=== PATIENT | male | born 1995 | race Caucasian/White ===

== ENCOUNTER 2024-11-24 02:43 | Emergency (ER) | payer MEDICAID ==
[~2024-11-24] VITALS: Ht 172.7 cm; Wt 65.9 kg
[2024-11-24 02:56] VITALS: TEMP 97.9
[2024-11-24] MEDS ORDERED: VALA500T34 PO (03:02)
[2024-11-24] MEDS ORDERED: BICT1TAB PO (03:02)
[2024-11-24] MEDS ORDERED: DOXY100C5 PO (03:02)
[2024-11-24] MEDS ORDERED: ARIP10TA8 PO (03:02)
[2024-11-24] MEDS ORDERED: PROP10TA72 PO (03:02)
[2024-11-24 05:00] VITALS: BP 139/75; PULSE 95; RESP 16; O2SAT 99
[2024-11-24] MEDS ORDERED: SULF1TAB42 PO (05:34)
[2024-11-24] MEDS ORDERED: CEPH-558 PO (05:34)
[2024-11-24] MEDS ORDERED: NYST30OI6 TP (05:35)
== END 2024-11-24 05:55 | disposition home or self-care (01) ==
LOC: EMS 02:44
DX: B37.9 Candidiasis, unspecified (principal); B35.9 Dermatophytosis, unspecified; B95.62 Methicillin resistant Staphylococcus aureus infection as the cause of diseases classified elsewhere; F41.9 Anxiety disorder, unspecified; Z79.624 Long term (current) use of inhibitors of nucleotide synthesis; Z79.899 Other long term (current) drug therapy
CPT/HCPCS: 99283; Z7502

== ENCOUNTER 2024-12-28 01:59 | Emergency (ER) | payer MEDICAID ==
[~2024-12-28] VITALS: Ht 172.7 cm; Wt 65.9 kg
[~2024-12-28 01:59] MED LIST: ARIP10TA8 PO; BICT1TAB PO; CEPH-558 PO; DOXY100C5 PO; NYST30OI6 TP; PROP10TA72 PO; SULF1TAB42 PO; VALA500T34 PO
[2024-12-28 02:14] VITALS: BP 131/87; PULSE 114; RESP 16; TEMP 98.1; O2SAT 99
== END 2024-12-28 02:59 | disposition home or self-care (01) ==
LOC: EMS 02:01
DX: B08.1 Molluscum contagiosum (principal); F41.9 Anxiety disorder, unspecified; L29.9 Pruritus, unspecified; Z79.624 Long term (current) use of inhibitors of nucleotide synthesis; Z79.899 Other long term (current) drug therapy
CPT/HCPCS: 99282; Z7502